=== PATIENT | male | born 1930 | race Caucasian/White ===

== ENCOUNTER 2019-01-10 10:55 | Inpatient (IN) | payer OTHER ==
--- OUTSIDE RECORDS SUMMARY | 2019-01-10 12:05 | XMS REPORT | Clinical Summary ---
:1930 Author Organization [facility] Address [address] [place] [address] Care Team Providers Name Role Phone Unknown, Phys Primary Care Provider Unavailable Allergies No Known Allergies Medications Medication Sig Dispensed Refills Start Date End Date Status multivitamin with Take 1 tablet 0 Active minerals tablet by mouth daily. amLODIPine (NORVASC) Take 1 tablet 90 tablet 1 07/30/2018 Active 5 mg tablet (5 mg total) by mouth daily. omeprazole TAKE 1 90 capsule 1 08/01/2018 Active (PriLOSEC) 40 MG CAPSULE (40 capsule MG TOTAL) BY MOUTH DAILY FOR 90 DAYS. pravastatin Take 1 tablet 90 tablet 1 09/03/2018 Active (PRAVACHOL) 20 MG (20 mg total) tabletIndications: by mouth Mixed hyperlipidemia nightly. sulindac (CLINORIL) TAKE 1 TABLET 90 tablet 1 11/25/2018 Active 200 MG tablet BY MOUTH TWICE A DAY tamsulosin (FLOMAX) Take by mouth 3 10/27/2018 Active 0.4 mg capsule daily. montelukast Take 10 mg by 11 10/29/2018 Active (SINGULAIR) 10 mg mouth daily. tablet fluticasone 0 11/21/2018 Active propionate (FLONASE) 50 mcg/actuation nasal spray amLODIPine (NORVASC) Take 5 mg by 0 Discontinued 5 mg tablet mouth daily. 8 pravastatin TAKE 1 TABLET 90 tablet 1 07/26/2017 Discontinued (PRAVACHOL) 20 MG BY MOUTH AT 8 tabletIndications: NIGHT Mixed hyperlipidemia sulindac (CLINORIL) TAKE 1 TABLET 24 tablet 0 07/31/2017 Discontinued 200 MG tablet BY MOUTH 8 TWICE A DAY omeprazole TAKE 1 90 capsule 1 08/17/2017 Discontinued (PriLOSEC) 40 MG CAPSULE (40 8 capsule MG TOTAL) BY MOUTH DAILY FOR 90 DAYS. amLODIPine (NORVASC) Take 1 tablet 90 tablet 1 02/01/2018 Discontinued 5 mg tablet (5 mg total) 8 by mouth daily. amLODIPine (NORVASC) Take 1 tablet 90 tablet 1 02/07/2018 Discontinued 5 mg tablet (5 mg total) 8 by mouth daily. pravastatin TAKE 1 TABLET 90 tablet 1 03/13/2018 Discontinued (PRAVACHOL) 20 MG BY MOUTH AT 9 tabletIndications: NIGHT Mixed hyperlipidemia omeprazole TAKE 1 90 capsule 1 05/09/2018 Discontinued (PriLOSEC) 40 MG CAPSULE (40 8 capsule MG TOTAL) BY MOUTH DAILY FOR 90 DAYS. sulindac (CLINORIL) Take 1 tablet 90 tablet 1 06/11/2018 Discontinued 200 MG tablet (200 mg 9 total) by mouth 2 (two) times a day. sulindac (CLINORIL) Take 1 tablet 90 tablet 1 09/03/2018 Discontinued 200 MG tablet (200 mg 9 total) by mouth 2 (two) times a day. Active Problems Problem Noted Date Generalized osteoarthritis Hyperlipidemia Encounter for long-term (current) use of NSAIDs MGUS (monoclonal gammopathy of unknown significance) GERD (gastroesophageal reflux disease) Encounters Date Type Specialty Care Team Description 12/31/2018 Office Visit Rheumatology Bandar Bowden MD Generalized OA ( Primary Dx); MGUS (monoclonal gammopathy of unknown significance); Encounter for long-term (current) use of NSAIDs; Mixed hyperlipidemia 11/25/2018 Refill Rheumatology Bandar Bowden MD 09/03/2018 Orders Only Rheumatology Adamaris Loomis MA Mixed hyperlipidemia 08/01/2018 Orders Only Adamaris Ruff MA 07/30/2018 Orders Only Adamaris Ruff MA 06/11/2018 Orders Only Adamaris Ruff MA 05/09/2018 Orders Only Rheumatology Bandar Bowden MD 05/02/2018 Refill Rheumatology Bandar Bowden MD 03/13/2018 Refill Rheumatology Bandar Bowden MD Mixed hyperlipidemia 02/07/2018 Orders Only Adamaris Ruff MA 02/05/2018 Office Visit Hematology Bandar Bowden MD MGUS (monoclonal gammopathy Natelson, Matt A., of unknown significance) 02/04/2018 Orders Only Hematology Mio Giron MA MGUS (monoclonal gammopathy of unknown significance) (Primary Dx) 02/01/2018 Orders Only Rheumatology Adamaris Loomis MA after 01/09/2018 Family History Medical History Relation Name Comments Other Father Unknown cause Colon cancer Mother Valvular heart disease Sister Mitral valve replacement No Known Problems Sister Relation Name Status Comments Father Mother Sister Alive Sister Alive Social History Tobacco Use Types Packs/Day Years Used Date Former Smoker Smokeless Tobacco: Former User Quit: 1985 Alcohol Use Drinks/Week oz/Week Comments Yes Occasional beer Sex Assigned at Date Recorded Not on file Job Start Date Occupation Industry Not on file Not on file Not on file Travel History Travel Start Travel End No recent travel history available. Last Filed Vital Signs Vital Sign Reading Time Taken Blood Pressure 164/81 12/31/2018 10:08 AM CDT Pulse 69 12/31/2018 10:08 AM CDT Temperature 36.4 C (97.6 F) 12/31/2018 10:08 AM CDT Respiratory Rate 18 12/31/2018 10:08 AM CDT Oxygen Saturation 92% 12/31/2018 10:08 AM CDT Inhaled Oxygen Concentration - - Weight 77.7 kg (171 lb 4.8 oz) 12/31/2018 10:08 AM CDT Height 180.3 cm (5' 11") 12/31/2018 10:08 AM CDT Body Mass Index 23.89 12/31/2018 10:08 AM CDT Plan of Treatment Date Type Specialty Care Team Description 12/31/2019 Office Visit Rheumatology Bandar Bowden MD [address] [address] Health Maintenance Due Date Last Done Comments SHINGLES VACCINES (#1) 11/09/1981 65+ PNEUMOCOCCAL VACCINE (1 of 2 - PCV13) 11/09/1996 PNEUMOCOCCAL POLYSACCHARIDE VACCINE AGE 65 AND OVER 11/09/1996 INFLUENZA VACCINE 03/27/2019 Procedures Procedure Name Priority Date/Time Associated Diagnosis Comments LIPID PANEL Routine 12/31/2018 10:49 Mixed hyperlipidemia Results for this AM CDT procedure are in the results section. URINALYSIS, AUTOMATED Routine 12/31/2018 10:49 Encounter for Results for this WITH MICROSCOPY AM CDT long-term (current) procedure are in use of NSAIDs the results section. SEDIMENTATION RATE Routine 12/31/2018 10:49 Generalized OA Results for this AM CDT procedure are in the results section. C-REACTIVE PROTEIN Routine 12/31/2018 10:49 Generalized OA Results for this AM CDT procedure are in the results section. COMPREHENSIVE METABOLIC Routine 12/31/2018 10:49 Encounter for Results for this PANEL AM CDT long-term (current) procedure are in use of NSAIDs the results section. CBC WITH PLATELET AND Routine 12/31/2018 10:49 Encounter for Results for this DIFFERENTIAL AM CDT long-term (current) procedure are in use of NSAIDs the results section. SERUM ELECTROPHORESIS Routine 12/31/2018 10:49 MGUS (monoclonal Results for this AM CDT gammopathy of unknown procedure are in significance) the results section. LDH Routine 02/05/2018 9:33 MGUS (monoclonal Results for this AM CDT gammopathy of unknown procedure are in significance) the results section. VITAMIN B12 LEVEL Routine 02/05/2018 9:33 MGUS (monoclonal Results for this AM CDT gammopathy of unknown procedure are in significance) the results section. FERRITIN LEVEL Routine 02/05/2018 9:33 MGUS (monoclonal Results for this AM CDT gammopathy of unknown procedure are in significance) the results section. HC COMPLETE BLD COUNT Routine 02/05/2018 9:33 MGUS (monoclonal Results for this W/AUTO DIFF AM CDT gammopathy of unknown procedure are in significance) the results section. after 01/09/2018 Results Urinalysis, automated with microscopy (12/31/2018 10:49 AM CDT) Color, UA YELLOW YELLOW [facility] Appearance CLEAR CLEAR [facility] Specific gravity, urine 1.006 1.001 - 1.035 [facility] pH, urine 6.5 5.0 - 8.0 [facility] Glucose, urine NEGATIVE NEGATIVE [facility] Bilirubin, UA NEGATIVE NEGATIVE [facility] Ketones, UA NEGATIVE NEGATIVE [facility] Occult blood, urine NEGATIVE NEGATIVE [facility] Protein, UA NEGATIVE NEGATIVE [facility] Nitrite, UA NEGATIVE NEGATIVE [facility] Leukocyte esterase, UA 1+ (A) NEGATIVE [facility] WBC, UA 0-5 < OR=5 /HPF [facility] RBC, UA NONE SEEN < OR=2 /HPF [facility] Squamous epithelial cells, UA 0-5 < OR=5 /HPF [facility] Bacteria, UA NONE SEEN NONE SEEN /HPF [facility] [place] Hyaline casts, UA NONE SEEN NONE SEEN /LPF [facility] [place] Specimen Urine Narrative Performed At FASTING:YES [facility] FASTING: YES Resulting Agency Comment Performing Organization Information: Site ID: [id number] Name: [facility] Address: [address] [place] [id number] Director: Grisel Bruno Performing Organization Address City/[facility] Cent[facility] [place] [address] Sedimentation rate (12/31/2018 10:49 AM CDT) Sedimentation rate 2 < OR=20 mm/h [facility] Specimen Blood Narrative Performed At FASTING:YES [facility] FASTING: YES Resulting Agency Comment Performing Organization Information: Site ID: [id number] Name: [facility] Address: [address] [place] [phone] Director: Grisel Bruno Performing Organization Address [facility] Centercoal [place] [address] CBC with platelet and differential (12/31/2018 10:49 AM CDT)Only the most recent of2 resultswithin the time period is included. WBC 7.1 3.8 - 10.8 Thousand/uL [facility] RBC 5.98 (H) 4.20 - 5.80 Million/uL [facility] HGB 16.8 13.2 - 17.1 g/dL [facility] HCT 51.2 (H) 38.5 - 50.0 % [facility] MCV 85.6 80.0 - 100.0 fL [facility] MCH 28.1 27.0 - 33.0 pg [facility] MCHC 32.8 32.0 - 36.0 g/dL [facility] RDW 14.2 11.0 - 15.0 % [facility] Platelet count 257 140 - 400 Thousand/uL [facility] MPV 10.0 7.5 - 12.5 fL [facility] Neutrophils, absolute 5,254 1,500 - 7,800 cells/uL [facility] Lymphocytes, absolute 1,058 850 - 3,900 cells/uL [facility] Monocytes, absolute 490 200 - 950 cells/uL [email or web address] Eosinophils, absolute 270 15 - 500 cells/uL [facility] Basophils, absolute 28 0 - 200 cells/uL [email or web address] [place] Neutrophils 74 % [facility] Lymphocytes 14.9 % [facility] Monocytes 6.9 % [facility] Eosinophils 3.8 % [facility] Basophils + RC 0.4 % [facility] [place] Specimen Blood Narrative Performed At FASTING:YES [facility] FASTING: YES Resulting Agency Comment Performing Organization Information: Site ID: [id number] Name: [facility] Address: [address] [place] [address] Director: Grisel Bruno Performing Organization Address [facility] Centercoal [place] [address] C-reactive protein (12/31/2018 10:49 AM CDT) CRP 2.0 <8.0 mg/L [facility] Specimen Blood Narrative Performed At FASTING:YES [facility] FASTING: YES Resulting Agency Comment Performing Organization Information: Site ID: [id number] Name: [facility] Address: [address] [place] [address] Director: Grisel Bruno Performing Organization Address [facility] Center[facility] [place] [address] Serum electrophoresis (12/31/2018 10:49 AM CDT) Protein 7.0 6.1 - 8.1 g/dL [facility] Albumin, S 4.2 3.8 - 4.8 g/dL [facility] Njojy-2-qklhrcxi 0.3 0.2 - 0.3 g/dL [facility] Xbwws-3-moiambwx 0.8 0.5 - 0.9 g/dL [facility] Beta-1 globulin 0.4 0.4 - 0.6 g/dL [facility] Beta-2 globulin 0.3 0.2 - 0.5 g/dL [facility] Gamma, CSF 1.0 0.8 - 1.7 g/dL [facility] Abnormal protein band 1 0.2 (H) NONE DETECTED g/dL [facility] Abnormal protein band 2 0.6 (H) NONE DETECTED g/dL [facility] Interpretation [facility] Comment: [facility] Evaluation reveals a faint restricted band (M-spike) migrating in the gamma globulin region.Consider immunofixation analysis if indicated. Evaluation reveals a restricted band (M-spike) migrating in the gamma globulin region.Consider immunofixation analysis if indicated. Specimen Blood Narrative Performed At FASTING:YES [facility] FASTING: YES Resulting Agency Comment Performing Organization Information: Site ID: [id number] Name: [facility] Address: [address] [place] [address] Director: Dr. Chance Torres Performing Organization Address City/State/Zipcode Phone Number [facility] [address] [facility] [place] [address] Lipid panel (12/31/2018 10:49 AM CDT) Cholesterol, total 175 <200 mg/dL [facility] HDL cholesterol 58 >40 mg/dL [facility] Triglycerides 146 <150 mg/dL [facility] LDL cholesterol 92 mg/dL (calc) [facility] calculated Comment: [place] Reference range: <100 Desirable range <100 mg/dL for primary prevention; <70 mg/dL for patients with CHD or diabetic patients with > or=2 CHD risk factors. LDL-C is now calculated using the Aftab-Kiki calculation, which is a validated novel method providing better accuracy than the Friedewald equation in the estimation of LDL-C. Aftab LUONG et al. TIFFANIE. 2013;310(19): 4821-0668 (http://education.Nfoshare.[employer]faq/RBY679) Cholesterol/HDL ratio 3.0 <5.0 (calc) [facility] Non-HDL cholesterol 117 <130 mg/dL [facility] Comment: (calc) [facility] For patients with diabetes plus 1 major ASCVD risk factor, treating to a non-HDL-C goal of <100 mg/dL (LDL-C of <70 mg/dL) is considered a therapeutic option. Specimen Blood Narrative Performed At FASTING:YES [facility] FASTING: YES Resulting Agency Comment Performing Organization Information: Site ID: [id number] Name: [facility] Address: [address] [place] [address] Director: Grisel Bruno Performing Organization Address City/State/[facility] Centercode Phone Number [facility] [address] [place] [address] Comprehensive metabolic panel (12/31/2018 10:49 AM CDT) Glucose 109 (H) 65 - 99 mg/dL [facility] Comment: [facility] Fasting reference interval For someone without known diabetes, a glucose value between 100 and 125 mg/dL is consistent with prediabetes and should be confirmed with a follow-up test. BUN, whole blood 18 7 - 25 mg/dL [facility] Creatinine 1.01 0.70 - 1.11 [facility] Comment: mg/dL [facility] For patients >49 years of age, the reference limit for Creatinine is approximately 13% higher for people identified as -Citizen Of [place]. EGFR Non-Afr. Citizen [place] 67 > OR=60 [facility] mL/min/1.73m2 [place] EGFR 77 > OR=60 [facility] mL/min/1.73m2 [place] BUN/creatinine ratio NOT APPLICABLE 6 - 22 (calc) [facility] Sodium 140 135 - 146 mmol/L [facility] Potassium 4.5 3.5 - 5.3 mmol/L [facility] Chloride 104 98 - 110 mmol/L [facility] CO2 25 20 - 32 mmol/L [facility] Calcium 9.0 8.6 - 10.3 mg/dL [facility] Protein 7.0 6.1 - 8.1 g/dL [facility] Albumin, S 4.4 3.6 - 5.1 g/dL [facility] Globulin, total 2.6 1.9 - 3.7 g/dL [facility] (calc) [facility] Albumin/globulin ratio 1.7 1.0 - 2.5 (calc) [facility] Total bilirubin 0.6 0.2 - 1.2 mg/dL [facility] Alkaline phosphatase 81 40 - 115 U/L [facility] AST 18 10 - 35 U/L [facility] ALT 17 9 - 46 U/L [facility] Specimen Blood Narrative Performed At FASTING:YES [facility] FASTING: YES Resulting Agency Comment Performing Organization Information: Site ID: [id number] Name: [facility] Address: [address] [place] [phone] Director: Grisel Bruno Performing Organization Address City/State/Zipcode Phone Number [facility] [address] [place] [address] LDH (02/05/2018 9:33 AM CDT) LDH 211 87 - 225 U/L [facility] DEPARTMENT OF PATHOLOGY AND GENOMIC MEDICINE Specimen Plasma specimen Performing Organization Address City/[facility] Centercoal Phone Number [facility] DEPARTMENT OF PATHOLOGY AND [address] [place] [id number] GENOMIC MEDICINE Ferritin level (02/05/2018 9:33 AM CDT) Ferritin level 67 30 - 400 ng/mL [facility] DEPARTMENT OF PATHOLOGY AND GENOMIC MEDICINE Specimen Plasma specimen Performing Organization Address [facility] Centercoal Phone Number [facility] DEPARTMENT OF PATHOLOGY AND [address] [place] [phone] [place] [address] MEDICINE Vitamin B12 level (02/05/2018 9:33 AM CDT) Vitamin B12 650 211 - 946 pg/mL [facility] DEPARTMENT OF PATHOLOGY Comment: AND GENOMIC MEDICINE Significant overlap exists between normal and deficiency states. However, most patients with deficiencies will have Serum B12 <200 pg/mL. Specimen Serum Performing Organization Address [facility] Phone Number [facility] DEPARTMENT OF PATHOLOGY AND [address] [place] [address] GENOMIC MEDICINE after 01/09/2018 Insurance Payer Benefit Plan / Group Subscriber ID Type Phone Address AETNA MEDICARE AETNA MEDICARE HMO/PPO [facility] xxxxxxxx HMO ([address] [place] [address] Advance Directives Patient has advance care planning documents on file. For more information, please contact:Beto Molina[address] [place] [phone]
--- OUTSIDE RECORDS SUMMARY | 2019-01-10 12:06 | XMS REPORT | Continuity of Care Document ---
:1930 Author Organization Interface Problems Problem Status Onset Classification Date Comments Source Date Reported ANKLE FX RT, Active [facility] PELVIC 7 Medical FRACTURE Center PELVIC Active [facility] FRACTURE Medical Center Final: Other 03/15/2017 [facility] fracture of Medical right lower Center leg, initial encounter for closed fracture Alcohol abuse Resolved Problem 03/15/2017 [facility] [place] HTN (<span Resolved Problem 03/15/2017 [facility] ID="[id number] Medical 439">Confirme Center d</span>) Arthritis Resolved Problem 03/15/2017 [facility] OTH FRACTURE Active [facility] OF RIGHT Medical LOWER LEG, Center INIT FO Medications Medication Details Route Status Patient Ordering Order Source Instructions Provider Date Folic Acid 1 MG 1 mg=1 tab, PO, Active 03/12[facility] Oral Tablet Daily, # 14 tab, 2017 Medical 0 Refill(s) Center tramadol 50 mg=1 tab, PO, Active 03/12[facility] [place] hydrochloride 50 Q6H, X 5 day, # 2017 Medical MG Oral Tablet 20 tab, 0 Center Refill(s) sulindac 200 mg 200 mg=1 tab, Active 03/12[facility] oral tablet PO, BID, TAKE 1 2017 Medical TABLET BY MOUTH Center TWICE A DAY, # 28 tab, 0 Refill(s) thiamine 100 mg 100 mg=1 tab, Active 03/12[facility] oral tablet PO, Daily, X 21 2017 Medical day, # 21 tab, 0 Center Refill(s) senna 8.6 mg 17.2 mg=2 tab, Active 03/12[facility] oral tablet PO, Bedtime, X 2017 Medical 10 day, # 20 Center tab, 0 Refill(s) pravastatin 20 20 mg=1 tab, PO, Active 03/12[facility] [place] mg oral tablet Daily, # 14 tab, 2017 Medical 0 Refill(s) Center polyethylene 17 gm, PO, Active 03/12[facility] glycol 3350 oral Daily, X 10 day, 2017 Medical powder for # 12 ea, 0 Center reconstitution Refill(s) amLODIPine 10 mg 10 mg=1 tab, PO, Active [place] oral tablet Daily, # 14 tab, 2017 Medical 0 Refill(s) Center pantoprazole 40 40 mg=1 tab, PO, Active [facility] mg oral enteric Before Dinner, # 2017 Medical coated tablet 14 tab, 0 Center Refill(s) metoprolol 12.5 mg=0.5 tab, Active [facility] tartrate 25 mg PO, Q12H, # 14 2017 Medical oral tablet tab, 0 Refill(s) Center gabapentin 100 100 mg=1 cap, Active [facility] MG Oral Capsule PO, Q8H, # 30 2017 Medical cap, 0 Refill(s) Center enoxaparin 40 40 mg=0.4 mL, Active [facility] mg/0.4 mL SUB-Q, [id number], 2017 Medical subcutaneous X 21 day, # 8 Center solution mL, 0 Refill(s) Amlodipine 10 mg, 1 tab, Inactive [facility] Route: PO, Drug 2016 Medical form: TAB, Center Daily, Dosing Weight 77.273, kg, Start date: 03/12/17 9:00:00 CDT, Duration: 30 day, Stop date: 04/10/17 9:00:00 CDTNotes: (Same as: Norvasc) Folic Acid 1 mg, 1 tab, Inactive [place] Route: PO, Drug 2016 Medical form: TAB, Center Daily, Dosing Weight 77.273, kg, Start date: 03/12/17 9:00:00 CDT, Duration: 30 day, Stop date: 04/10/17 9:00:00 CDTNotes: (Same as: Folvite) Thiamine 100 mg, 1 tab, Inactive [facility] Route: PO, Drug 2016 Medical form: TAB, Center Daily, Dosing Weight 77.273, kg, Start date: 03/12/17 9:00:00 CDT, Duration: 30 day, Stop date: 04/10/17 9:00:00 CDTNotes: (Same As: Vitamin B1) gabapentin 100 100 mg, 1 cap, Inactive [facility] MG Oral Capsule Route: PO, Drug 2017 Medical form: CAP, Q8H, Center Dosing Weight 77.273, kg, Start date: 03/12/17 0:00:00 CDT, Duration: 30 day, Stop date: 04/10/17 16:00:00 CDTNotes: (Same as: Neurontin) Lopressor 12.5 mg, 0.5 No Longer [place] tab, Route: PO, Active 2016 Medical Drug form: TAB, Center Q12H, Dosing Weight 77.273, kg, Start date: 03/11/17 9:00:00 CDT, Duration: 30 day, Stop date: 04/09/17 21:00:00 CDTNotes: (Same as: Lopressor) 12.5 mg=1/2 X 25 mg TAB Hydralazine 10 mg, 0.5 mL, No Longer [place] Route: IVP, Drug Active 2016 Medical form: INJ, Q4H, Center Dosing Weight 77.273, kg, PRN Hypertension, Start date: 03/10/17 0:19:00 CDT, Duration: 30 day, Stop date: 04/09/17 0:18:00 CDTNotes: (Same as: Apresoline) Push over 5 minutes lactobacillus 1 cap, Route: No Longer [place] rhamnosus GG PO, Drug Form: Active 2016 Medical CAP, Daily, Center Start date: 03/09/17 9:30:00 CDT, Duration: 30 day, Stop date: 04/08/17 9:00:00 CDTNotes: Same as Culturelle bacitracin-polym 1 appl, Route: No Longer [place] yxin B topical TOP, BID, Drug Active 2016 Medical form: OINT, Center Start date: 03/09/17 9:00:00 CDT, Duration: 30 day, Stop date: 04/07/17 17:00:00 CDTNotes: (Same As: Polysporin) lactobacillus 1 tab, Route: Inactive [place] acidophilus PO, Drug Form: 2017 Medical TAB, Dosing Center Weight 77.273, kg, Daily, Start date: 03/09/17 9:00:00 CDT, Duration: 30 day, Stop date: 04/07/17 9:00:00 CDT Neosporin 1 appl, Route: No Longer [place] TOP, BID, Drug Active 2016 Medical form: OINT, Center Start date: 03/09/17 9:00:00 CDT, Duration: 30 day, Stop date: 04/07/17 17:00:00 CDT Miralax 17 gm, 1 pkt, No Longer [place] Route: PO, Drug Active 2016 Medical form: PWDR, Center Daily, Dosing Weight 77.273, kg, Priority: NOW, Start date: 03/08/17 18:43:00 CDT, Duration: 30 day, Stop date: 04/07/17 9:00:00 CDT Sulindac 200 mg, 1 tab, No Longer [place] Route: PO, Drug Active 2016 Medical form: TAB, BID, Center Dosing Weight 77.273, kg, Start date: 03/08/17 9:00:00 CDT, Duration: 30 day, Stop date: 04/06/17 17:00:00 CDTNotes: Non-Formulary Drug Give With Food. (Same As: Clinoril) Acetaminophen 1,000 mg, 2 tab, No Longer [place] Route: PO, Drug Active 2016 Medical form: TAB, Q6H, Center Dosing Weight 77.273, kg, Start date: 03/07/17 18:00:00 CDT, Duration: 30 day, Stop date: 04/06/17 12:00:00 CDTNotes: Max acetaminophen 4000 mg/day (4 gm/day). (Same as: Tylenol Extra Strength) Amlodipine 5 mg, 1 tab, No Longer [place] Route: PO, Drug Active 2016 Medical form: TAB, Center Daily, Dosing Weight 77.273, kg, Priority: NOW, Start date: 03/07/17 17:56:00 CDT, Duration: 30 day, Stop date: 04/06/17 9:00:00 CDTNotes: (Same as: Norvasc) Ancef 1 gm, Route: No Longer [place] IVPB, Drug form: Active 2017 Medical PDR/INJ, [id number], Center Dosing Weight 77.273, kg, Start date: 03/07/17 16:00:00 CDT, Duration: 1 day, Stop date: 03/08/17 8:00:00 CDT, ABX Indication: Surgical ProphylaxisNotes : (Same As: Alfredo Benavidez) MEDICATION WASTE Product Size: 1000 mg Product Wasted: ___ mg sulindac 200 mg 200 mg=1 tab, No Longer [place] oral tablet TAKE 1 TABLET BY Active 2016 Medical MOUTH TWICE A Center DAY Ondansetron 4 mg, 2 mL, Inactive [place] Route: IVP, Drug 2016 Medical form: INJ, ONCE, Center Dosing Weight 77.273, kg, PRN Nausea & Vomiting, Start date: 03/07/17 10:21:00 CDTNotes: (Same as: Zofran) MEDICATION WASTE Product Size: 4 mg Product Wasted: ___ mg Hydromorphone 0.5 mg, 0.25 mL, Inactive [place] Route: IVP, Drug 2016 Medical form: INJ, Center Q5Min, Dosing Weight 77.273, kg, PRN Pain Score 7-10, Start date: 03/07/17 10:21:00 CDT, Duration: 4 doses or times, Stop date: 03/08/17 0:00:00 CDTNotes: Same as: Dilaudid Oxycodone 10 mg, 2 tab, Inactive [place] Route: PO, Drug 2016 Medical form: TAB, Q4H, Center Dosing Weight 77.273, kg, PRN Pain Score 7-10, Start date: 03/07/17 10:21:00 CDT, Duration: 30 day, Stop date: 04/06/17 10:20:00 CDTNotes: (Same as: Roxicodone) Naloxone 0.4 mg, 1 mL, Inactive [facility] Route: IVP, Drug 2016 Medical form: INJ, Center Q2MIN, Dosing Weight 77.273, kg, PRN Narcotic Reversal, Start date: 03/07/17 10:21:00 CDT, Duration: 8 doses or times, Stop date: 03/08/17 0:00:00 CDTNotes: Same as Narcan Flumazenil 0.2 mg, 2 mL, Inactive [place] Route: IVP, Drug 2016 Medical form: INJ, PRN, Center Dosing Weight 77.273, kg, PRN Benzodiazepine Reversal, Initial dose, Start date: 03/07/17 10:21:00 CDT, Duration: 30 day, Stop date: 04/06/17 10:20:00 CDTNotes: (Same as: Romazicon) Fentanyl 50 microgram, 1 Inactive [place] mL, Route: IVP, 2016 Medical Drug form: INJ, [place] Q5Min, Dosing Weight 77.273, kg, PRN Pain Score 7-10, Priority: Routine, Start date: 03/07/17 10:21:00 CDT, Duration: 2 doses or times, Stop date: 03/08/17 0:00:00 CDTNotes: (Same as: Sublimaze) Preservative free. acetaminophen Route: IV, Drug Inactive [place] (ANES) form: INJ, ONCE, 2016 Medical Stop date: [place] 03/07/17 10:20:00 CDT ondansetron Route: IV, Drug Inactive [place] (MANISHAS) form: INJ, ONCE, 2016 Medical Stop date: [place] 03/07/17 10:20:00 CDT fentaNYL (ANES) Route: IV, Drug Inactive [place] form: INJ, ONCE, 2016 Medical Stop date: [place] 03/07/17 9:03:00 CDT rocuronium Route: IV, Drug Inactive [place] (ANES) form: INJ, ONCE, 2016 Medical Stop date: [place] 03/07/17 9:03:00 CDT propofol (ANES) Route: IV, Drug Inactive 03/07[facility] [place] form: INJ, ONCE, 2016 Medical Stop date: [place] 03/07/17 9:03:00 CDT lidocaine (ANES) Route: IV, Drug Inactive 03/07[facility] [place] form: INJ, ONCE, 2016 Medical Stop date: [place] 03/07/17 9:03:00 CDT Omeprazole 40 mg, Route: No Longer [facility] PO, Daily, Active 2016 Medical Dosing Weight [place] 77.273, kg, Start date: 03/07/17 9:00:00 CDT, Duration: 30 day, Stop date: 04/05/17 9:00:00 CDT Pravastatin 20 mg, 1 tab, No Longer [facility] Route: PO, Drug Active 2016 Medical form: TAB, Center Daily, Dosing Weight 77.273, kg, Start date: 03/07/17 9:00:00 CDT, Duration: 30 day, Stop date: 04/05/17 21:00:00 CDTNotes: (Same as: Pravachol) phenylephrine Route: IV, Drug Inactive [place] (ANES) form: INJ, ONCE, 2016 Medical Stop date: [place] 03/07/17 8:33:00 CDT ceFAZolin (ANES) Route: IV, Drug Inactive [facility] form: INJ, ONCE, 2016 Medical Stop date: [place] 03/07/17 8:28:00 CDT LR 1000 mL INJ Route: IV, Total Inactive [facility] (ANES) Volume: 1,000, 2016 Medical Start date: [place] 03/07/17 7:30:00 CDT, Stop date: 03/07/17 8:30:00 CDT Isolyte S (PH 1,000 mL, Rate: No Longer [place] 7.4) 1000 mL 75 ml/hr, Infuse Active 2017 Medical 1,000 mL over: 13.3 hr, Center Route: IV, Dosing Weight 77.273 kg, Total Volume: 1,000, Start date: 03/06/17 22:13:00 CDT, Duration: 12 hr, Stop date: 03/07/17 10:12:00 CDTNotes: (Same as: Isolyte S PH 7.4) sennosides, MCFP 17.2 mg, 2 tab, No Longer [place] Route: PO, Drug Active 2016 Medical Form: TAB, Center Dosing Weight 77.273, kg, Bedtime, Start date: 03/06/17 21:00:00 CDT, Duration: 30 day, Stop date: 04/04/17 21:00:00 CDTNotes: (Same as: Senokot) Docusate 100 mg, 1 cap, No Longer [facility] Route: PO, Drug Active 2016 Medical form: CAP, Q12H, Center Dosing Weight 77.273, kg, Start date: 03/06/17 21:00:00 CDT, Duration: 30 day, Stop date: 04/05/17 9:00:00 CDTNotes: (Same as: Colace) (Do Not Crush) Labetalol 10 mg, 2 mL, No Longer [place] Route: IVP, Drug Active 2016 Medical form: INJ, Center Q5Min, Dosing Weight 77.273, kg, PRN Elevated BP, Start date: 03/06/17 17:40:00 CDT, Duration: 5 doses or times, Stop date: 03/07/17 6:00:00 CDT Hydromorphone 0.5 mg, 0.25 mL, No Longer [place] Route: IVP, Drug Active 2016 Medical form: INJ, Center Q5Min, Dosing Weight 77.273, kg, PRN Pain Score 7-10, Start date: 03/06/17 17:31:00 CDT, Duration: 4 doses or times, Stop date: 03/07/17 0:00:00 CDTNotes: Same as: Dilaudid Ondansetron 4 mg, 2 mL, No Longer [place] Route: IVP, Drug Active 2016 Medical form: INJ, ONCE, Center Dosing Weight 77.273, kg, PRN Nausea & Vomiting, Start date: 03/06/17 17:31:00 CDTNotes: (Same as: Zofrcorine) MEDICATION WASTE Product Size: 4 mg Product Wasted: ___ mg Flumazenil 0.2 mg, 2 mL, No Longer [place] Route: IVP, Drug Active 2016 Medical form: INJ, PRN, Center Dosing Weight 77.273, kg, PRN Benzodiazepine Reversal, Initial dose, Start date: 03/06/17 17:31:00 CDT, Stop date: 03/07/17 6:00:00 CDTNotes: (Same as: Romazicon) Naloxone 0.4 mg, 1 mL, No Longer [place] Route: IVP, Drug Active 2016 Medical form: INJ, Center Q2MIN, Dosing Weight 77.273, kg, PRN Narcotic Reversal, Start date: 03/06/17 17:31:00 CDT, Duration: 8 doses or times, Stop date: 03/07/17 6:00:00 CDTNotes: Same as Narcan Protonix 40 mg, 1 tab, No Longer [place] Route: PO, Drug Active 2016 Medical form: ECTAB, Center Before Dinner, Start date: 03/06/17 16:30:00 CDT, Stop date: 04/04/17 16:30:00 CDTNotes: Tablet should not be chewed or crushed. (Same as: Protonix) omeprazole 40 mg 40 mg=1 cap, PO, No Longer [place] oral delayed Daily, 0 Active 2016 Medical release capsule Refill(s) Center amLODIPine 5 mg 5 mg=1 tab, PO, No Longer [place] oral tablet Daily, # 30 tab, Active 2016 Medical 0 Refill(s) Center pravastatin 20 20 mg=1 tab, PO, No Longer [place] mg oral tablet Bedtime, # 30 Active 2016 Medical tab, 0 Refill(s) Center Enoxaparin 40 mg, 0.4 mL, No Longer [place] Route: SUB-Q, Active 2016 Medical Drug form: INJ, Center [id number], Dosing Weight 77.273, kg, Start date: 03/06/17 12:00:00 CDT, Duration: 30 day, Stop date: 04/04/17 12:00:00 CDTNotes: (Same as: Lovenox) Sulindac 200 mg, Route: Inactive [place] PO, ONCE, Dosing 2016 Medical Weight 77.273, Center kg, Start date: 03/06/17 11:11:00 CDT, Stop date: 03/06/17 11:11:00 CDT Amlodipine 5 mg, 1 tab, Inactive [place] Route: PO, Drug 2016 Medical form: TAB, ONCE, Center Dosing Weight 77.273, kg, Start date: 03/06/17 11:11:00 CDT, Stop date: 03/06/17 11:11:00 CDTNotes: (Same as: Norvasc) Oxycodone 5 mg, 1 tab, No Longer [place] Hydrochloride 5 Route: PO, Drug Active 2017 Medical MG Oral Tablet form: TAB, Q4H, Center Dosing Weight 77.273, kg, PRN Pain Score 4-6, Start date: 03/06/17 11:05:00 CDT, Duration: 30 day, Stop date: 04/05/17 11:04:00 CDTNotes: (Same as: Roxicodone) Tramadol 50 mg, 1 tab, No Longer [place] Route: PO, Drug Active 2016 Medical form: TAB, Q6H, Center Dosing Weight 77.273, kg, Priority: NOW, Start date: 03/06/17 11:05:00 CDT, Duration: 30 day, Stop date: 04/05/17 6:00:00 CDTNotes: Not to exceed 400mg/day. (Same As: Ultram) Acetaminophen 1,000 mg, 100 No Longer [place] mL, Route: IVPB, Active 2016 Medical Drug form: INJ, Center Q6H, Dosing Weight 77.273, kg, Priority: NOW, Start date: 03/06/17 11:05:00 CDT, Duration: 48 hr, Stop date: 03/08/17 6:00:00 CDTNotes: Infuse over 15 minutes Do not exceed 4gm/day of acetaminophen MEDICATION WASTE Product Size: 1000 mg Product Wasted: ___ mg pregabalin 100 mg, 1 cap, No Longer [place] Route: PO, Drug Active 2016 Medical form: CAP, Q8H, Center Dosing Weight 77.273, kg, Priority: NOW, Start date: 03/06/17 11:05:00 CDT, Duration: 48 hr, Stop date: 03/08/17 8:00:00 CDTNotes: (Same as: Lyrica) Morphine 4 mg, Route: Inactive [place] IVP, ONCE, 2016 Medical Dosing Weight Center 77.273, kg, Priority: STAT, Start date: 03/06/17 6:58:00 CDT, Stop date: 03/06/17 6:58:00 CDT Allergies, Adverse Reactions, Alerts Substance Category Reaction Severity Reaction Status Date Comments Source type Reported Immunizations Immunization Date Given Site Status Last Updated Comments Source Results Order Name Results Value Reference Date Interpretation Comments Source Range CHEM PANEL Magnesium Lvl 2.1 mg/dL 1.8 - 2.4 03/11 [facility] /2016 [facility] Center CHEM PANEL eGFR 72 03/11 Result Comment: The eGFR is calculated using the CKD-EPI formula. In most young, healthy individuals the eGFR will be >90 mL/ min/1.73m2. The eGFR declines with age. An eGFR of 60-89 may be normal in [facility] mL/min/1. some populations, particularly the elderly, for whom the CKD-EPI formula has not been extensively validated. Use of the eGFR is not recommended in the following populations: [address] Individuals with unstable creatinine concentrations, including patients and those with serious co-morbid conditions. Patients with extremes in muscle mass or diet. The data above are obtained from the National Kidney Disease Education Program (NKDEP) which additionally recommends that when the eGFR is used in patients with extremes of body mass index for purposes of drug dosing, the eGFR should be multiplied by the estimated BMI. CHEM PANEL BUN 18 mg/dL 7 - 22 03/11 [facility] CHEM PANEL Glucose Lvl 109 mg/dL 70 - 99 03/11 [facility]2016 [facility] CHEM PANEL Sodium Lvl 135 meq/L 135 - 145 03/[address] CHEM PANEL Creatinine 0.96 mg/dL 0.50 - 03/11 [facility] Lvl 1. [facility] CHEM PANEL Potassium Lvl 4.1 meq/L 3.5 - 5.1 03/[address] CHEM PANEL Chloride Lvl 103 meq/L 95 - 109 03/[address] CHEM PANEL Calcium Lvl 8.4 mg/dL 8.5 - 10.5 03/[address] CHEM PANEL CO2 23 meq/L 24 - 32 03/[address] CHEM PANEL AGAP 13.1 meq/L 10.0 - 03/11 [facility] 20.0 [facility] CHEM PANEL Phosphorus 2.9 mg/dL 2.5 - 4.5 03/[address] HEMATOLOGY Eosinophils 2.0 % 0.0 - 4.0 03/11 [facility] HEMATOLOGY Monocytes 10.0 % 2.0 - 12.0 03/11 [facility] HEMATOLOGY RBC Morph Normal 03/11 [facility] (03/11/17 6:16 AM) [place] HEMATOLOGY Plt Morph Normal 03/11 [facility] (03/11/17 6:16 AM) [place] HEMATOLOGY Lymphocytes 12.0 % 20.0 - 03/11 [facility] 40.0 [facility] HEMATOLOGY Metamyelocyte 1.0 % 0.0 - 1.0 03/11 [facility] s [facility] HEMATOLOGY Atypical 0.0 % <=0.0 % 03/11 [facility] Lymphs [facility] HEMATOLOGY Eosinophils # 0.2 K/CMM 0.0 - 0.5 03/11 2016 [facility] HEMATOLOGY Segs 74.0 % 45.0 - 03/11 75.0 [facility] HEMATOLOGY Lymphocytes # 1.2 K/CMM 1.0 - 5.5 03/11 [facility] HEMATOLOGY Monocytes # 1.0 K/CMM 0.0 - 0.8 03/11 [facility] HEMATOLOGY Bands 1.0 % 0.0 - 11.0 03/11 2016 [facility] HEMATOLOGY Segs-Bands # 7.2 K/CMM 1.5 - 8.1 03/[address] HEMATOLOGY Platelet 345 K/CMM 133 - 450 03/11 2016 [facility] HEMATOLOGY MPV 7.9 fL 7.4 - 10.4 03/11 [facility] HEMATOLOGY WBC 9.6 K/CMM 3.7 - 10.4 03/11 [facility] HEMATOLOGY RBC 4.56 M/CMM 4.70 - 03/11 [facility] 6.10 [facility] HEMATOLOGY Hgb 13.2 g/dL 14.0 - 03/11 [facility] 18.0 [facility] HEMATOLOGY Hct 38.6 % 42.0 - 03/11 [facility] 54.0 [facility] HEMATOLOGY MCV 84.7 fL 80.0 - 03/11 [facility] 94.0 [facility] HEMATOLOGY RDW 15.1 % 11.5 - 03/11 [facility] 14.5 [facility] HEMATOLOGY MCH 28.9 pg 27.0 - 03/11 31.0 [facility] HEMATOLOGY MCHC 34.2 g/dL 32.0 - 03/11 [facility] 36.0 [facility] CHEM PANEL eGFR 66 03/08 Result Comment: The eGFR is calculated using the CKD-EPI formula. In most young, healthy individuals the eGFR will be >90 mL/ min/1.73m2. The eGFR declines with age. An eGFR of 60-89 may be normal in [facility] mL/min some populations, particularly the elderly, for whom the CKD-EPI formula has not been extensively validated. Use of the eGFR is not recommended in the following populations: [address] Individuals with unstable creatinine concentrations, including patients and those with serious co-morbid conditions. Patients with extremes in muscle mass or diet. The data above are obtained from the National Kidney Disease Education Program (NKDEP) which additionally recommends that when the eGFR is used in patients with extremes of body mass index for purposes of drug dosing, the eGFR should be multiplied by the estimated BMI. CHEM PANEL BUN 22 mg/dL 7 - 03/08 [facility] CHEM PANEL Creatinine 1.03 mg/dL 0.50 - 03/08 [facility] Lvl 1.40 [facility] CHEM PANEL CO2 25 meq/L 24 - 32 03/08 2016 [facility] CHEM PANEL Calcium Lvl 7.7 mg/dL 8.5 - 10.5 03/[address] CHEM PANEL Sodium Lvl 139 meq/L 135 - 145 03/[address] CHEM PANEL Chloride Lvl 107 meq/L 95 - 109 03/[address] [place] [address] CHEM PANEL Potassium Lvl 4.5 meq/L 3.5 - 5.1 03/[address] CHEM PANEL Glucose Lvl 102 mg/dL 70 - 99 03/[address] CHEM PANEL AGAP 11.5 meq/L 10.0 - 03/08 20.0 [facility] HEMATOLOGY Hgb 11.4 g/dL 14.0 - 03/08 18.0 [facility] HEMATOLOGY MCV 85.5 fL 80.0 - 03/08 [place] 94.0 [facility] HEMATOLOGY RBC 4.02 M/CMM 4.70 - 03/08 [place] 6.10 [facility] HEMATOLOGY WBC 10.6 K/CMM 3.7 - 10.4 03/08 [facility] HEMATOLOGY Hct 34.3 % 42.0 - 03/08 54.0 [facility] HEMATOLOGY MCHC 33.2 g/dL 32.0 - 03/08 [place] 36.0 [facility] HEMATOLOGY MPV 8.8 fL 7.4 - 10.4 03/08 [facility] HEMATOLOGY Platelet 240 K/CMM 133 - 450 03/08 [facility] HEMATOLOGY MCH 28.4 pg 27.0 - 03/08 [place] 31.0 [facility] HEMATOLOGY RDW 14.7 % 11.5 - 03/08 14.5 [facility] HEMATOLOGY Basophils 0.4 % 0.0 - 1.0 03/08 [facility] HEMATOLOGY Segs-Bands # 8.7 K/CMM 1.5 - 8.1 03/08 [facility] HEMATOLOGY Lymphocytes # 0.9 K/CMM 1.0 - 5.5 03/08 [facility] HEMATOLOGY Monocytes # 0.8 K/CMM 0.0 - 0.8 03/08 [facility] HEMATOLOGY Eosinophils # 0.1 K/CMM 0.0 - 0.5 03/08 [facility] HEMATOLOGY Eosinophils 0.9 % 0.0 - 4.0 03/08 [facility] HEMATOLOGY Segs 82.4 % 45.0 - 03/08 75.0 [facility] HEMATOLOGY Lymphocytes 8.5 % 20.0 - 03/08 40.0 [facility] HEMATOLOGY Monocytes 7.8 % 2.0 - 12.0 03/08 [facility] HEMATOLOGY Hct 37.8 % 42.0 - 03/07 [facility] 54.0 [facility] HEMATOLOGY Hgb 12.5 g/dL 14.0 - 03/07 [facility] 18.0 [facility] Pelvis wo Pelvis wo IV EXAM: CT PELVIS WITHOUT CONTRAST 03/07 - [facility] IV contrast/w - Medical contrast/w CT This report was dictated by a Supervisor Telephone Clerks/ Fellow. I have personally reviewed the images as Center 3D CT well as the Resident's interpretation and agree with the findings. DATE: 03/07/2017 at 1534 hours Read by: Nkechi Goodrich MD Resident: Nkechi Goodrich MD Dictated Date/time: 03/07/17 15:59 Electronically Signed by: Adeola De León MD 03/07/17 18:00 FINAL REPORT INDICATION: - post-op. COMPARISON: CT pelvis without contrast on 03/06/2017. TECHNIQUE: Volumetric CT acquisition of the pelvis without contrast. Axial , sagittal and coronal reconstructions. 3D reconstructions are created at the acquisition workstation. IV contrast: None. DLP: 303 mGy-cm. FINDINGS: Bones: Postsurgical changes are present following fixation of a mildly displaced left zone 1 sacral fracture. There are 2 left SI joint screws at the level of S1 and 1 transsacral, transiliac screw at t he level of S2. There is no hardware impingement upon the spinal canal or neural foramina. The left SI joint screws abuts the anterior cortex, without obvious breech. A single anterior column screw has been placed spanning the comminuted, displaced fracture of the right anterior column with extension into the base of the superior pubic ramus and acetabular wall. Over all alignment is satisfactory. There is also a segmental, displaced fracture of the right inferior pubic ramus. No pubic symphysis or sacroiliac joint diastasis. Hip joint alignment remains preserved bilaterally, with osteophyte formation at the bilateral hips. Facet arthropathic changes of the lower lumbar spine. Intrapelvic soft tissues: Extraperitoneal hematoma is again seen within the right, anterolateral margin of the bladder which tracks along the right pelvic sidewall and into the right inguinal canal, similar to minimally increased. Surrounding soft tissues: Few foci of subcutaneous emphysema are seen within the left gluteal musculature, likely postsurgical in nature. IMPRESSION: 1. Satisfactory postsurgical appearance following percutaneous screw fixation of the left zone 1 sacral fracture and right anterior column. 2. Unchanged, displaced and segmental fracture of the right inferior pubic ramus. 3. Similar to minimally increased extraperitoneal hemorrhage within the right hemipelvis and right inguinal canal. BLOOD BANK Antibody Scrn Negative 03/07 [facility] RESULTS /2016 [facility] (03/07/17 1:12 AM) [place] BLOOD BANK ABO/Rh O POS 03/07 [facility] RESULTS /2016 [facility] ELECTROLYTE AGAP 16.7 meq/L 10.0 - 03/07 [facility] S 20.0 /2016 [facility] ELECTROLYTE eGFR 58 03/07 Result Comment: The eGFR is calculated using the CKD-EPI formula. In most young, healthy individuals the eGFR will be >90 mL/ min/1.73m2. The eGFR declines with age. An eGFR of 60-89 may be normal in [facility] [place] [facility] mL/min/1. some populations, particularly the elderly, for whom the CKD-EPI formula has not been extensively validated. Use of the eGFR is not recommended in the following populations: Medical 3m2 Center Individuals with unstable creatinine concentrations, including patients and those with serious co-morbid conditions. Patients with extremes in muscle mass or diet. The data above are obtained from the National Kidney Disease Education Program (NKDEP) which additionally recommends that when the eGFR is used in patients with extremes of body mass index for purposes of drug dosing, the eGFR should be multiplied by the estimated BMI. ELECTROLYTE Chloride Lvl 104 meq/L 95 - 109 03/[address] ELECTROLYTE CO2 22 meq/L 24 - 32 03/[address] ELECTROLYTE Calcium Lvl 8.2 mg/dL 8.5 - 10.5 03/[address] ELECTROLYTE Creatinine 1.15 mg/dL 0.50 - 03/07 [facility] [place] [facility] Lvl 1.40 [facility] ELECTROLYTE Sodium Lvl 138 meq/L 135 - 145 03/[address] ELECTROLYTE BUN 22 mg/dL 7 -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
[2019-01-10 13:25] LABS: Absolute Lymphocytes (CBC) 0.3 K/uL (0.7-4.9); Absolute Monocytes 0.8 K/uL (0.1-1.3); Absolute Neutrophil 16.1 K/uL (1.8-8.0); Basophils % 0.2 % (0-1.3); Eosinophils % 0.1 % (0-4.4); Hematocrit 49.5 % (39.6-49.0); Lymphocytes % 1.9 % (15.3-44.8); MPV 8.6 fL (7.6-11.3); Monocytes % 4.9 % (3.3-12.3); RBC Red Blood Cell Count 5.88 M/uL (4.33-5.43)
[2019-01-10 13:47] LABS: Protime INR 1.01
[2019-01-10] MEDS ORDERED: DIPHENHYDRAMINE 25 MG TAB/CAP PO PRN (14:00)
[2019-01-10] MEDS ORDERED: ONDANSETRON 4 MG/2 ML VIAL IV PRN (14:00)
[2019-01-10] MEDS ORDERED: ACETAMINOPHEN 325 MG TABLET PO PRN (14:00)
[2019-01-10] MEDS ORDERED: LOPERAMIDE HCL 2 MG CAPSULE PO PRN (14:00)
[2019-01-10] MEDS ORDERED: POLYETHYL GLY 3350 17 GM/DOSE PO PRN (14:00)
[2019-01-10] MEDS ORDERED: ONDANSETRON 4 MG (ODT) TAB PO PRN (14:00)
[2019-01-10 14:03] LABS: Albumin 3.9 g/dL (3.4-5.0); Bilirubin Direct 0.2 mg/dL (0-0.2); Bilirubin Total 0.9 mg/dL (0.2-1.0); Magnesium 1.9 mg/dL (1.8-2.4); Phosphorus 1.5 mg/dL (2.5-4.9); Potassium 3.9 mmol/L (3.5-5.1); Protein, Total 7.6 g/dL (6.4-8.2); Thyroid Stimulating Hormone 0.751 uIU/mL (0.360-3.740)
--- NOTE | 2019-01-10 14:26 | RAD REPORT ---
EXAM DESCRIPTION: RAD - Chest Pa And Lat (2 Views) - 01/10/2019 2:17 pm CLINICAL HISTORY: cellulitis, tachy Chest pain. COMPARISON: Chest Pa And Lat (2 Views) dated 04/09/2018; Chest Single View dated 03/06/2017 FINDINGS: The lungs are emphysematous but clear. The heart is normal in size. No displaced fractures . IMPRESSION: COPD.
[2019-01-10 14:28] LABS: Blood Morphology Comment NOT SEEN (NOT SEEN); Platelet Estimate ADEQ; Urine White Blood Cell Casts OK
--- NOTE | 2019-01-10 14:44 | EKG ---
Test Date: 2019-01-10 Test Time: 13:44:16 Senior Datastage Developer: BENJIE MEASUREMENT RESULTS: Intervals: Rate: 93 ME: 156 QRSD: 84 QT: 348 QTc: 432 Admire: P: 79 ME: 156 QRS: 81 T: 80 INTERPRETIVE STATEMENTS: Normal sinus rhythm Normal ECG Compared to ECG 03/05/2017 23:05:03 Ventricular premature complex(es) no longer present Myocardial infarct finding no longer present Electronically Signed On 01-10-19 14:43:29 CDT by Enrique Mosley
[2019-01-10] MEDS: CEFTRIAXONE/SWI 1gm 1 GM/10 ML SYR IV SCH (15:11)
[2019-01-10] MEDS: D5 0.45 NS 1,000 ML IV SCH (15:11)
[2019-01-10 21:59] LABS: Urine Appearance CLEAR; Urine Bilirubin NEGATIVE (NEG); Urine Blood NEGATIVE (NEG); Urine Color YELLOW; Urine Glucose NEGATIVE (NEG); Urine Protein TRACE (NEG); Urine Specific Gravity 1.015 (1.005-1.030); Urine Urobilinogen 0.2 mg/dL (0.2-1.0); Urine pH 5.5 (5.0-7.0)
[2019-01-10 22:04] LABS: Urine Microscopic Reflex ORDER UMIC
[2019-01-10 22:15] LABS: Urine Bacteria <20 /HPF (NONE SEEN); Urine Culture Reflex Order NOT NEEDED; Urine Mucus SLIGHT /HPF (NONE SEEN); Urine RBC NONE SEEN /HPF (NONE SEEN)
[2019-01-11] MEDS: CEFTRIAXONE/SWI 1gm 1 GM/10 ML SYR IV SCH ×3 (02:59→14:58)
[2019-01-11 06:01] LABS: Absolute Neutrophil 15.2 K/uL (1.8-8.0); Basophils % 0.2 % (0-1.3); Eosinophils % 0.3 % (0-4.4); Lymphocytes % 5.9 % (15.3-44.8); MPV 8.5 fL (7.6-11.3); Monocytes % 5.9 % (3.3-12.3); RBC Red Blood Cell Count 4.98 M/uL (4.33-5.43)
[2019-01-11] MEDS: ENOXAPARIN 40 MG/0.4 ML SQ SCH (08:23)
[2019-01-11] MEDS: D5 0.45 NS 1,000 ML IV SCH (08:23)
--- NOTE | 2019-01-11 10:37 | P.PN ---
Subjective Date of Service: 01/11/19 Chief Complaint: HE FEELS A LOT BETTER. Subjective: Improving PAIN IN L LEG STILL CONTINUES AND ERYTHEMA. HEART RATE IS DOWN. DYSPNEA IS NO MORE. Review of Systems 10-point ROS is otherwise unremarkable Integumentary: As per HPI Physical Examination - Vital Signs Temperature: 98.1 F Blood Pressure: 121/61 Pulse: 75 Respirations: 19 Pulse Ox (%): 93 - Physical Exam General: Alert, Mild distress HEENT: Atraumatic, PERRLA, EOMI Neck: Supple, JVD not distended Respiratory: Clear to auscultation bilaterally, Normal air movement Cardiovascular: Regular rate/rhythm, Normal S1 S2 Gastrointestinal: Normal bowel sounds, No tenderness Musculoskeletal: No tenderness Integumentary: Erythema, Warmth (LOWER 1/3 OF L LEG.) Neurological: Normal speech, Normal tone, Normal affect Lymphatics: No axilla or inguinal lymphadenopathy - Studies Laboratory Data (last 24 hrs) 01/11/19 05:15: Sodium 138, Potassium 4.0, BUN 22 H, Creatinine 1.29, Glucose 120 H, Magnesium 2.0 01/11/19 05:15: WBC 17.3 H, Hgb 14.0, Hct 42.0 D, Plt Count 219 01/10/19 13:00: PT 11.9, INR 1.01, APTT 29.3 01/10/19 13:00: WBC 17.3 H, Hgb 16.1, Hct 49.5 H, Plt Count 238 01/10/19 13:00: Sodium 140, Potassium 3.9, BUN 19 H, Creatinine 1.17, Glucose 110 H, Phosphorus 1.5 L, Magnesium 1.9, Total Bilirubin 0.9, AST 19, ALT 29, Alkaline Phosphatase 89 Medications List Reviewed: Yes Assessment And Plan - Current Problems (Diagnosis) (1) Cellulitis of leg, left Current Visit: Yes Status: Acute Plan: WBC IS STILL HIGH. HE IS STILL IN PAIN. IMPROVED BUT NOT READY FOR HOME YET. HE STILL GOES TO DR. ZIMMER FOR HIS CARE.
[2019-01-11] MEDS: TAMSULOSIN 0.4 MG SR CAP PO SCH (20:00)
[2019-01-11] MEDS: ATORVASTATIN 10 MG TAB PO SCH (20:00)
[2019-01-12] MEDS: CEFTRIAXONE/SWI 1gm 1 GM/10 ML SYR IV SCH (02:15)
[2019-01-12 05:02] LABS: Absolute Lymphocytes (CBC) 1.2 K/uL (0.7-4.9); Absolute Monocytes 0.8 K/uL (0.1-1.3); Absolute Neutrophil 9.8 K/uL (1.8-8.0); Basophils % 0.1 % (0-1.3); Eosinophils % 1.7 % (0-4.4); Hematocrit 41.1 % (39.6-49.0); Lymphocytes % 10.1 % (15.3-44.8); MPV 8.4 fL (7.6-11.3); Monocytes % 6.3 % (3.3-12.3); RBC Red Blood Cell Count 4.84 M/uL (4.33-5.43)
[2019-01-12 05:28] LABS: Magnesium 2.2 mg/dL (1.8-2.4); Potassium 3.8 mmol/L (3.5-5.1)
[2019-01-12] MEDS: PANTOPRAZOLE 40MG TABLET PO SCH (05:31)
[2019-01-12] MEDS: D5 0.45 NS 1,000 ML IV SCH ×2 (05:31→20:50)
[2019-01-12] MEDS: ENOXAPARIN 40 MG/0.4 ML SQ SCH (08:29)
[2019-01-12] MEDS: MONTELUKAST 10 MG TAB PO SCH (08:30)
[2019-01-12] MEDS ORDERED: POTASSIUM 25 MEQ EFFERV TAB PO ONE (08:38)
--- NOTE | 2019-01-12 11:29 | P.PN ---
Subjective Date of Service: 01/12/19 Chief Complaint: BETTER. MILD PAIN L LEG. Subjective: Improving PAIN IN L LEG STILL CONTINUES AND ERYTHEMA. HEART RATE IS DOWN. DYSPNEA IS NO MORE. HE IS DOING LOT BETTER. STILL HAS PAIN BUT LOT IMPROVED IN L LEG. Review of Systems 10-point ROS is otherwise unremarkable Integumentary: As per HPI Physical Examination - Vital Signs Temperature: 98 F Blood Pressure: 163/76 Pulse: 76 Respirations: 18 Pulse Ox (%): 94 - Physical Exam General: Alert, In no apparent distress HEENT: Atraumatic, PERRLA, EOMI Neck: Supple, JVD not distended Respiratory: Clear to auscultation bilaterally, Normal air movement Cardiovascular: Regular rate/rhythm, Normal S1 S2 Gastrointestinal: Normal bowel sounds, No tenderness Musculoskeletal: No tenderness Integumentary: Tenderness/swelling (LOT LESSER THAN BEFORE L LEG LOWER PART ON THE CENTER OF CELLULITIS.), Erythema, Warmth (LOT LESSER ON L LEG. ) Neurological: Normal speech, Normal tone, Normal affect Lymphatics: No axilla or inguinal lymphadenopathy - Studies Laboratory Data (last 24 hrs) 01/12/19 04:45: Sodium 141, Potassium 3.8, BUN 18, Creatinine 1.11, Glucose 121 H, Magnesium 2.2 01/12/19 04:45: WBC 12.0 H D, Hgb 13.7, Hct 41.1, Plt Count 219 Microbiology Data (last 24 hrs): 01/10/19 15:30 Clean Catch Urine [place] Count - Final <10,000 CFU/ML. 01/10/19 15:30 Clean Catch Urine - Final 01/10/19 13:12 Blood - Blood Aerobic Blood Culture - Final 01/10/19 13:12 Blood - Blood Gram Stain - Final 01/10/19 13:12 Blood - Blood Anaerobic Blood Culture - Final 01/10/19 13:12 Blood - Blood Gram Stain - Final Medications List Reviewed: Yes Assessment And Plan - Current Problems (Diagnosis) (1) Cellulitis of leg, left Current Visit: Yes Status: Acute Plan: WBC IS STILL HIGH. HE IS STILL IN PAIN. IMPROVED BUT NOT READY FOR HOME YET. HE STILL GOES TO DR. ZIMMER FOR HIS CARE. ADD BACTRIM DS HE WILL GO HOME IN AM. WE CAN SEE IF HE TOLERATES.
[2019-01-12] MEDS: SMZ./TMP. 800/160 MG TABLET PO SCH ×3 (11:40→20:55)
[2019-01-12] MEDS: TAMSULOSIN 0.4 MG SR CAP PO SCH (20:46)
[2019-01-12] MEDS: ATORVASTATIN 10 MG TAB PO SCH (20:46)
[2019-01-12] MEDS: CEFTRIAXONE/SWI 1gm 1 GM/10 ML SYR IVP SCH (20:51)
[2019-01-13] MEDS: D5 0.45 NS 1,000 ML IV SCH (02:00)
[2019-01-13 05:21] LABS: Absolute Lymphocytes (CBC) 1.1 K/uL (0.7-4.9); Absolute Monocytes 0.6 K/uL (0.1-1.3); Absolute Neutrophil 7.3 K/uL (1.8-8.0); Basophils % 0.4 % (0-1.3); Eosinophils % 2.8 % (0-4.4); Hematocrit 41.5 % (39.6-49.0); Lymphocytes % 12.1 % (15.3-44.8); MPV 8.6 fL (7.6-11.3); Monocytes % 6.9 % (3.3-12.3); RBC Red Blood Cell Count 4.84 M/uL (4.33-5.43)
[2019-01-13] MEDS: PANTOPRAZOLE 40MG TABLET PO SCH (05:25)
[2019-01-13 06:31] LABS: Magnesium 2.2 mg/dL (1.8-2.4); Potassium 4.1 mmol/L (3.5-5.1)
[2019-01-13] MEDS: ENOXAPARIN 40 MG/0.4 ML SQ SCH (09:00)
[2019-01-13] MEDS: CEFTRIAXONE/SWI 1gm 1 GM/10 ML SYR IVP SCH (09:03)
[2019-01-13] MEDS: MONTELUKAST 10 MG TAB PO SCH (09:04)
[2019-01-13] MEDS: SMZ./TMP. 800/160 MG TABLET PO SCH (09:04)
--- NOTE | 2019-01-13 21:41 | P.DS ---
Admission Date: 01/11/19 Discharge Date: 01/13/19 Disposition: ROUTINE DISCHARGE Discharge Condition: FAIR Reason for Admission: BETTER. MILD PAIN L LEG. - Problems (1) Cellulitis of leg, left Status: Acute Hospital Course: MR. FOSS IS DOING GREAT, THERE IS NO PAIN IN LEG ANY LONGER. 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 Vital Signs/Physical Exam: Temp Pulse Resp BP Pulse Ox 97.3 F 73 15 175/76 H 95 01/13/19 12:00 01/13/19 12:00 01/13/19 12:00 01/13/19 12:00 01/13/19 12:00 Laboratory Data at Discharge: WBC 9.4 K/uL (4.3-10.9) D 01/13/19 04:47 Hgb 13.5 g/dL (13.6-17.9) L 01/13/19 04:47 Hct 41.5 % (39.6-49.0) 01/13/19 04:47 Plt Count 224 K/uL (152-406) 01/13/19 04:47 PT 11.9 SECONDS (9.5-12.5) 01/10/19 13:00 INR 1.01 01/10/19 13:00 APTT 29.3 SECONDS (24.3-36.9) 01/10/19 13:00 Sodium 140 mmol/L (136-145) 01/13/19 04:47 Potassium 4.1 mmol/L (3.5-5.1) 01/13/19 04:47 BUN 15 mg/dL (7-18) 01/13/19 04:47 Creatinine 1.07 mg/dL (0.55-1.3) 01/13/19 04:47 Glucose 108 mg/dL (74-106) H 01/13/19 04:47 Phosphorus 1.5 mg/dL (2.5-4.9) L 01/10/19 13:00 Magnesium 2.2 mg/dL (1.8-2.4) 01/13/19 04:47 Total Bilirubin 0.9 mg/dL (0.2-1.0) 01/10/19 13:00 AST 19 U/L (15-37) 01/10/19 13:00 ALT 29 U/L (12-78) 01/10/19 13:00 Alkaline Phosphatase 89 U/L (45-117) 01/10/19 13:00 Home Medications: Amlodipine [Norvasc*] 5 mg PO DAILY 01/10/19 Fluticasone Propionate [Flovent Diskus] 50 mcg IH DAILY 01/10/19 Montelukast [Singulair] 10 mg PO DAILY 01/10/19 Multivitamin with Minerals [Multivitamins with Minerals] 1 each PO DAILY Omeprazole [Prilosec] 40 mg PO DAILY 01/10/19 Pravastatin Sodium 20 mg PO BEDTIME 01/10/19 Tamsulosin [Flomax] 0.4 mg PO BEDTIME 01/10/19 Smz./Tmp. [Bactrim Ds 800 MG/160 MG] 1 tab PO BID #20 tab 01/13/19 New Medications: Smz./Tmp. [Bactrim Ds 800 MG/160 MG] 1 tab PO BID #20 tab Followup: Jcarlos Soto MD [Primary Care Provider] -
== END 2019-01-13 12:59 | disposition home or self-care (01) | DRG 603 ==
LOC: 2ND 11:56 → OBSVTOIN 01-11 12:26
PROVIDERS: ADMIT Internal Medicine; ATTEND Internal Medicine
DX: L03.116 Cellulitis of left lower limb (principal); K21.9 Gastro-esophageal reflux disease without esophagitis; R00.0 Tachycardia, unspecified; E86.0 Dehydration
CPT/HCPCS: 36415; 71046; 80048; 80076; 81003; 81015; 82306; 82607; 83605; 83735; 84100; 84145; 84443; 85025; 85610; 85730; 87040; 87077; 87086; 87088; 87186; 87205; 93005; 96365; 96367; 97163; G0378; G0379; J0696; J1650